=== PATIENT | male | born 2000 | race Caucasian/White ===

== ENCOUNTER 2018-04-11 19:20 | Emergency (ER) | payer SELFPAY ==
[2018-04-11 20:39] VITALS: BP 109/65
[2018-04-11] MEDS ORDERED: Mupirocin 2% OINT* TUBE TOPICAL ONE (20:47)
[2018-04-11] MEDS ORDERED: Cephalexin CAP* 500 MG PO ONE ×2 (20:48)
--- NOTE | 2018-04-11 20:50 | UC ---
Skin Complaint HPI - HPI Summary HPI Summary: 17 YO MALE who comes to clinic with a complaint of a draining wound on the left lower leg. Patient believes it was an insect bite about a week ago that he scratched and its gradually become swollen and infected. There was some pussy drainage out of it today. No fevers feels well otherwise. No history of MRSA. - History of Current Complaint Chief Complaint: UCSkin Time Seen by Provider: 04/11/18 20:41 Stated Complaint: INSECT BITE ON LEFT LEG Pain Intensity: 6 - Allergy/Home Medications Allergies/Adverse Reactions: Allergies Allergy/AdvReac Type Severity Reaction Status Date / Time No Known Allergies Allergy Verified 04/11/18 20:32 Home Medications: Home Medications Escitalopram Oxalate [Lexapro 10 mg] 10 mg PO DAILY 04/11/18 [History Confirmed 04/11/18] Escitalopram Oxalate [Lexapro 20 mg] 20 mg PO DAILY 04/11/18 [History Confirmed 04/11/18] Triamcinolone 0.1% CREAM (NF) [Kenalog 0.1% Cream (NF)] 1 applic TOPICAL ONCE PRN 04/11/18 [History Confirmed 04/11/18] Review of Systems Constitutional: Negative Skin: Other - SEE HPI Eyes: Negative ENT: Negative Respiratory: Negative Cardiovascular: Negative Gastrointestinal: Negative Motor: Negative Neurovascular: Negative Musculoskeletal: Negative Neurological: Negative Psychological: Negative Is Patient Immunocompromised?: No All Other Systems Reviewed And Are Negative: Yes PMH/Surg Hx/FS Hx/Imm Hx - Surgical History Surgical History: Yes Surgery Procedure, Year, and Place: [place] teeth extraction. - Family History Known Family History: Positive: Unknown - Social History Alcohol Use: None Substance Use Type: None Smoking Status (MU): Never Smoked Tobacco Physical Exam Triage Information Reviewed: Yes Appearance: Well-Appearing, No Pain Distress, Well-Nourished Vital Signs: Initial Vital Signs Temp 98.6 F 04/11/18 20:33 Pulse 65 04/11/18 20:33 Resp 18 04/11/18 20:33 BP 109/65 04/11/18 20:33 Pulse Ox 100 04/11/18 20:33 Vital Signs Reviewed: Yes Eye Exam: Normal Neck exam: Normal Neck: Positive: Supple Respiratory: Positive: No respiratory distress Musculoskeletal Exam: Normal Musculoskeletal: Positive: Strength Intact, ROM Intact, No Edema Neurological Exam: Normal Psychological Exam: Normal Skin: Positive: Other - On the left lower anterior irizarry there is a 3 cm diameter area of erythema with minimal elevation. There is some serous drainage. No obvious fluctuance for I&D. No streaking. Ankle and knee have full range of motion. Course/Dx - Course Course Of Treatment: We will start antibiotics. Follow with primary care doctor. Recheck sooner if worse - Diagnoses Provider Diagnoses: LEFT LEG CELLULITIS AND SKIN ABSCESS Discharge - Sign-Out/Discharge Documenting (check all that apply): Patient Departure All imaging exams completed and their final reports reviewed: No Studies - Discharge Plan Condition: Stable Disposition: HOME Prescriptions: Cephalexin CAP* [Keflex CAP*] 500 mg PO QID #38 cap Mupirocin 1 applic TOPICAL TID #22 gm Patient Education Materials: Cellulitis (ED), Abscess (ED) Referrals: Makenna Harrell MD [Primary Care Provider] - Additional Instructions: FOLLOW UP WITH YOUR DOCTOR. GET RECHECKED FOR ANY WORSENING OF YOUR CONDITION OR QUESTIONS OR CONCERNS. - Billing Disposition and Condition Condition: STABLE Disposition: Home
== END 2018-04-11 21:07 | disposition home or self-care (01) ==
LOC: UCCORT 19:20
DX: L03.116 Cellulitis of left lower limb (principal); L02.416 Cutaneous abscess of left lower limb
CPT/HCPCS: 99203; A9270-GY; G0463